=== PATIENT | male | born 1985 | race Caucasian/White ===

== ENCOUNTER 2018-11-09 06:14 | Inpatient (IN) ==
[2018-11-09] MEDS ORDERED: Famotidine 20 MG/2 ML VIAL IVP ONE (06:23)
[2018-11-09] MEDS ORDERED: methylPREDNISolone 125 MG/2 ML VIAL IVP ONE (06:23)
[2018-11-09] MEDS ORDERED: 0.9 % Sodium Chloride 1,000 ML IVC ONE (06:23)
[2018-11-09] MEDS ORDERED: Ondansetron 4 MG/2 ML VIAL IVP ONE (06:48)
[2018-11-09 06:51] LABS: Basophils % 0.2 %; Eosinophils # 0.2 K/mcL (0.0-0.6); Eosinophils % 0.8 %; Hematocrit 46.4 % (37.5-50.1); Immature Granulocytes % 0.4 % (0-4); Lymphocytes # 2.8 K/mcL (0.6-4.6); Mean Corpuscular HGB Conc 32.5 g/dL (31.6-35.5); Mean Corpuscular Hemoglobin 27.6 pg (28.0-33.3); Mean Corpuscular Volume 84.7 fL (83.0-100.0); Mean Platelet Volume 10.2 fL (9.4-12.4); Monocytes % 9.9 %; Platelet Count 375 K/mcL (140-400); Red Blood Count 5.48 M/mcL (4.19-5.50); Red Cell Distribution Width 12.7 % (11.5-14.5); Segmented Neutrophils % 74.7 %; White Blood Count 20.3 K/mcL (4.3-11.1)
[2018-11-09] MEDS ORDERED: EPINEPHrine 1 MG/ML VIAL IM ONE (07:03)
[2018-11-09] MEDS ORDERED: Isovue-370 500 ML BOTTLE IVP ONE (07:05)
[2018-11-09 07:21] LABS: Hemoglobin 15.1 g/dL (12.9-16.9); Neutrophils # 15.2 K/mcL (1.6-8.9)
[2018-11-09 07:34] LABS: BUN/Creatinine Ratio 23 (6-26); Blood Urea Nitrogen 26 mg/dL (6-20); Calcium 9.3 mg/dL (8.6-10.3); Carbon Dioxide 24 mEq/L (23-29); Chloride 96 mEq/L (98-107); Creatine Kinase 105 Units/L (30-223); Glucose 139 mg/dL (70-105); Osmolality,Calculated 277 (280-300); Potassium 4.3 mEq/L (3.5-5.1); Sodium 130 mEq/L (136-145); eGFR For African Americans > 60 (> 60); eGFR For Non-African Americans > 60 (> 60)
[2018-11-09] MEDS ORDERED: *HR* HYDROmorphone (PF) 1 MG/ML SYRINGE IVP ONE ×2 (08:00→11:43)
[2018-11-09] MEDS ORDERED: MetroNIDAZOLE 500 MG/100 ML 500 MG/100 ML BAG IVPB ONE (09:45)
[2018-11-09] MEDS ORDERED: levoFLOXacin 500 MG/100 ML 500 MG/100 ML BAG IVPB ONE (09:45)
[2018-11-09] MEDS ORDERED: Naloxone 0.4 MG/ML INJ IVP PRN (09:57)
[2018-11-09] MEDS: *HR* HYDROcodone/Acet 5/325 mg TABLET PO PRN ×2 (13:16→20:57)
[2018-11-09 13:19] LABS: C-Reactive Protein 292 mg/L (Less than 10)
[2018-11-09] MEDS: Ringers Solution, Lactated 1,000 ML IVC SCH (16:06)
[2018-11-09] MEDS: *HR* OxyCODONE Immed Rel 5 MG TABLET PO PRN (17:40)
[2018-11-09] MEDS: Famotidine 20 MG TABLET PO SCH (20:57)
[2018-11-10] MEDS: Ringers Solution, Lactated 1,000 ML IVC SCH ×2 (02:24→12:23)
[2018-11-10] MEDS: *HR* OxyCODONE Immed Rel 5 MG TABLET PO PRN ×3 (02:48→23:22)
[2018-11-10 04:14] LABS: Basophils % 0.1 %; Hematocrit 33.8 % (37.5-50.1); Immature Granulocytes % 0.3 % (0-4); Lymphocytes # 1.1 K/mcL (0.6-4.6); Lymphocytes % 7.7 %; Mean Corpuscular HGB Conc 32.8 g/dL (31.6-35.5); Mean Corpuscular Hemoglobin 28.1 pg (28.0-33.3); Mean Corpuscular Volume 85.6 fL (83.0-100.0); Mean Platelet Volume 9.9 fL (9.4-12.4); Monocytes # 1.8 K/mcL (0.0-1.3); Monocytes % 12.7 %; Neutrophils # 10.9 K/mcL (1.6-8.9); Platelet Count 275 K/mcL (140-400); Red Blood Count 3.95 M/mcL (4.19-5.50); Red Cell Distribution Width 12.4 % (11.5-14.5); Segmented Neutrophils % 79.2 %; White Blood Count 13.8 K/mcL (4.3-11.1)
[2018-11-10 04:31] LABS: BUN/Creatinine Ratio 27 (6-26); Blood Urea Nitrogen 23 mg/dL (6-20); Calcium 8.6 mg/dL (8.6-10.3); Carbon Dioxide 26 mEq/L (23-29); Chloride 100 mEq/L (98-107); Glucose 152 mg/dL (70-105); Osmolality,Calculated 283 (280-300); Potassium 4.2 mEq/L (3.5-5.1); Sodium 133 mEq/L (136-145); eGFR For African Americans > 60 (> 60); eGFR For Non-African Americans > 60 (> 60)
[2018-11-10 04:37] LABS: Hemoglobin 11.1 g/dL (12.9-16.9)
[2018-11-10] MEDS ORDERED: Acetaminophen 325 MG TABLET PO ONE (06:47)
[2018-11-10] MEDS: Famotidine 20 MG TABLET PO SCH ×2 (09:26→19:37)
[2018-11-10] MEDS: *HR* HYDROcodone/Acet 5/325 mg TABLET PO PRN (12:22)
[2018-11-10] MEDS: Aztreonam 1,000 MG in 0.9 % Sodium Chloride Mini Bag 100 ML IVPB SCH ×2 (14:23→19:37)
[2018-11-10] MEDS: Simethicone 80 MG TAB.CHEW PO PRN (19:37)
[2018-11-11] MEDS: Ringers Solution, Lactated 1,000 ML IVC SCH ×3 (00:52→11:29)
[2018-11-11] MEDS: Aztreonam 1,000 MG in 0.9 % Sodium Chloride Mini Bag 100 ML IVPB SCH ×2 (03:36→11:27)
[2018-11-11] MEDS: *HR* HYDROcodone/Acet 5/325 mg TABLET PO PRN ×4 (03:41→23:18)
[2018-11-11 06:38] LABS: Basophils % 0.1 %; Eosinophils # 0.6 K/mcL (0.0-0.6); Hematocrit 32.9 % (37.5-50.1); Hemoglobin 10.8 g/dL (12.9-16.9); Immature Granulocytes % 1.8 % (0-4); Immature Platelets 1.3 % (1.1-6.1); Lymphocytes % 10.8 %; Mean Corpuscular HGB Conc 32.8 g/dL (31.6-35.5); Mean Corpuscular Volume 85.2 fL (83.0-100.0); Mean Platelet Volume 9.3 fL (9.4-12.4); Monocytes # 1.7 K/mcL (0.0-1.3); Monocytes % 9.3 %; Neutrophils # 13.9 K/mcL (1.6-8.9); Platelet Count 335 K/mcL (140-400); Red Blood Count 3.86 M/mcL (4.19-5.50); White Blood Count 18.5 K/mcL (4.3-11.1)
[2018-11-11 07:34] LABS: Alanine Aminotransferase 34 Units/L (7-52); Albumin 2.9 g/dL (3.5-5.7); Albumin/Globulin Ratio 0.9 (1.1-2.2); Alkaline Phosphatase 111 Units/L (34-104); Aspartate Amino Transferase 27 Units/L (13-39); BUN/Creatinine Ratio 24 (6-26); Bilirubin,Direct 0.1 mg/dL (0.0-0.2); Bilirubin,Indirect 0.3 mg/dL (0.0-1.2); Bilirubin,Total 0.4 mg/dL (0.3-1.0); Blood Urea Nitrogen 19 mg/dL (6-20); Calcium 8.7 mg/dL (8.6-10.3); Carbon Dioxide 25 mEq/L (23-29); Chloride 103 mEq/L (98-107); Globulin 3.4 g/dL (2.4-3.5); Glucose 109 mg/dL (70-105); Osmolality,Calculated 281 (280-300); Potassium 4.2 mEq/L (3.5-5.1); Sodium 134 mEq/L (136-145); Total Protein 6.3 g/dL (6.4-8.9); eGFR For African Americans > 60 (> 60); eGFR For Non-African Americans > 60 (> 60)
[2018-11-11] MEDS: Famotidine 20 MG TABLET PO SCH ×2 (09:55→19:27)
[2018-11-11] MEDS: *HR* OxyCODONE Immed Rel 5 MG TABLET PO PRN ×2 (11:39→19:26)
[2018-11-11] MEDS: levoFLOXacin 750 MG/150 ML 750 MG/150 ML BAG IVPB SCH (15:36)
[2018-11-11 17:08] LABS: Rheumatoid Factor 19 IU/mL (Less than 14)
[2018-11-11 17:15] LABS: Procalcitonin 0.71 ng/mL (0.00-0.15)
[2018-11-11 17:29] LABS: Amphetamine Screen,Urine Positive ng/mL (Cutoff=1000); Barbiturate Screen,Urine Negative ng/mL (Cutoff=200); Benzodiazepines Screen,Urine Negative ng/mL (Cutoff=200); Cannabinoid Screen,Urine Positive ng/mL (Cutoff = 50); Cocaine Screen,Urine Negative ng/mL (Cutoff= 300); Opiate Screen,Urine Positive ng/mL (Cutoff=300); Phencyclidine Screen,Urine Negative ng/mL (Cutoff=25)
[2018-11-11] MEDS: Simethicone 80 MG TAB.CHEW PO PRN (18:38)
[2018-11-12] MEDS: *HR* OxyCODONE Immed Rel 5 MG TABLET PO PRN ×3 (02:58→20:12)
[2018-11-12] MEDS: Ringers Solution, Lactated 1,000 ML IVC SCH ×3 (05:51→19:01)
[2018-11-12] MEDS: *HR* HYDROcodone/Acet 5/325 mg TABLET PO PRN ×2 (07:39→18:19)
[2018-11-12] MEDS: Famotidine 20 MG TABLET PO SCH ×2 (07:39→20:12)
[2018-11-12] MEDS: levoFLOXacin 750 MG/150 ML 750 MG/150 ML BAG IVPB SCH (07:40)
[2018-11-12 08:09] LABS: Basophils % 0.2 %; Eosinophils # 0.6 K/mcL (0.0-0.6); Eosinophils % 4.1 %; Hematocrit 32.5 % (37.5-50.1); Hemoglobin 10.5 g/dL (12.9-16.9); Immature Granulocytes % 2.1 % (0-4); Lymphocytes # 1.5 K/mcL (0.6-4.6); Lymphocytes % 10.8 %; Mean Corpuscular HGB Conc 32.3 g/dL (31.6-35.5); Mean Corpuscular Hemoglobin 27.9 pg (28.0-33.3); Mean Corpuscular Volume 86.4 fL (83.0-100.0); Mean Platelet Volume 9.1 fL (9.4-12.4); Monocytes # 1.3 K/mcL (0.0-1.3); Monocytes % 9.9 %; Neutrophils # 9.9 K/mcL (1.6-8.9); Platelet Count 304 K/mcL (140-400); Red Blood Count 3.76 M/mcL (4.19-5.50); Red Cell Distribution Width 13.2 % (11.5-14.5); Segmented Neutrophils % 72.9 %; White Blood Count 13.6 K/mcL (4.3-11.1)
[2018-11-12 08:25] LABS: BUN/Creatinine Ratio 20 (6-26); Blood Urea Nitrogen 17 mg/dL (6-20); Calcium 8.5 mg/dL (8.6-10.3); Carbon Dioxide 28 mEq/L (23-29); Chloride 104 mEq/L (98-107); Glucose 98 mg/dL (70-105); Osmolality,Calculated 284 (280-300); Potassium 4.5 mEq/L (3.5-5.1); Sodium 136 mEq/L (136-145); eGFR For African Americans > 60 (> 60); eGFR For Non-African Americans > 60 (> 60)
[2018-11-12] MEDS: *HR* Heparin 5,000 UNIT/ML VIAL SQ SCH (17:05)
[2018-11-12] MEDS: Simethicone 80 MG TAB.CHEW PO PRN (17:22)
[2018-11-13] MEDS: *HR* HYDROcodone/Acet 5/325 mg TABLET PO PRN ×3 (00:15→11:54)
[2018-11-13 02:29] LABS: Basophils # 0.1 K/mcL (0.0-0.2); Basophils % 0.5 %; Eosinophils # 0.6 K/mcL (0.0-0.6); Eosinophils % 3.2 %; Hematocrit 32.6 % (37.5-50.1); Hemoglobin 10.5 g/dL (12.9-16.9); Immature Granulocytes % 4.3 % (0-4); Lymphocytes # 2.2 K/mcL (0.6-4.6); Lymphocytes % 12.1 %; Mean Corpuscular HGB Conc 32.2 g/dL (31.6-35.5); Mean Corpuscular Hemoglobin 27.3 pg (28.0-33.3); Mean Corpuscular Volume 84.9 fL (83.0-100.0); Monocytes % 11.2 %; Neutrophils # 12.3 K/mcL (1.6-8.9); Platelet Count 399 K/mcL (140-400); Red Blood Count 3.84 M/mcL (4.19-5.50); Red Cell Distribution Width 13.2 % (11.5-14.5); Segmented Neutrophils % 68.7 %; White Blood Count 17.9 K/mcL (4.3-11.1)
[2018-11-13 02:43] LABS: BUN/Creatinine Ratio 15 (6-26); Blood Urea Nitrogen 12 mg/dL (6-20); Calcium 8.3 mg/dL (8.6-10.3); Carbon Dioxide 24 mEq/L (23-29); Chloride 100 mEq/L (98-107); Glucose 111 mg/dL (70-105); Osmolality,Calculated 278 (280-300); Potassium 4.2 mEq/L (3.5-5.1); Sodium 134 mEq/L (136-145); eGFR For African Americans > 60 (> 60); eGFR For Non-African Americans > 60 (> 60)
[2018-11-13] MEDS ORDERED: Ibuprofen 600 MG TABLET PO ONE (03:20)
[2018-11-13] MEDS: *HR* OxyCODONE Immed Rel 5 MG TABLET PO PRN ×3 (04:22→21:21)
[2018-11-13] MEDS: *HR* Heparin 5,000 UNIT/ML VIAL SQ SCH ×2 (04:24→17:32)
[2018-11-13] MEDS: Ringers Solution, Lactated 1,000 ML IVC SCH ×2 (06:21→13:39)
[2018-11-13 07:00] LABS: Hepatitis B Surface Antibody 165.13 mIU/mL
[2018-11-13 07:06] LABS: Hepatitis B Surface Antigen Nonreactive (Nonreactive)
[2018-11-13] MEDS: Famotidine 20 MG TABLET PO SCH ×2 (09:17→20:05)
[2018-11-13] MEDS: levoFLOXacin 750 MG/150 ML 750 MG/150 ML BAG IVPB SCH (09:18)
[2018-11-13] MEDS ORDERED: 0.9 % Sodium Chloride 1,000 ML IVC SCH (11:00)
[2018-11-13] MEDS ORDERED: *HR* OxyCODONE Immed Rel 5 MG TABLET PO SCH (12:00)
[2018-11-13] MEDS ORDERED: Isovue-370 500 ML BOTTLE IVP ONE (13:26)
[2018-11-13 14:18] LABS: C-Reactive Protein 224 mg/L (Less than 10)
[2018-11-13 14:30] LABS: Creatine Kinase 47 Units/L (30-223); Lactate Dehydrogenase 202 Units/L (140-271)
[2018-11-13] MEDS ORDERED: Ketorolac 15 MG/ML VIAL IVP PRN (17:05)
[2018-11-13] MEDS ORDERED: *HR* HYDROmorphone (PF) 1 MG/ML SYRINGE IVP ONE (17:05)
[2018-11-13] MEDS: MetroNIDAZOLE 500 MG/100 ML 500 MG/100 ML BAG IVPB SCH (17:33)
[2018-11-14] MEDS: MetroNIDAZOLE 500 MG/100 ML 500 MG/100 ML BAG IVPB SCH ×4 (00:36→23:36)
[2018-11-14] MEDS: *HR* OxyCODONE Immed Rel 5 MG TABLET PO PRN ×3 (03:25→19:58)
[2018-11-14 04:08] LABS: Basophils # 0.1 K/mcL (0.0-0.2); Basophils % 0.6 %; Eosinophils # 0.5 K/mcL (0.0-0.6); Eosinophils % 3.2 %; Hematocrit 33.2 % (37.5-50.1); Hemoglobin 10.5 g/dL (12.9-16.9); Lymphocytes # 2.2 K/mcL (0.6-4.6); Lymphocytes % 13.1 %; Mean Corpuscular HGB Conc 31.6 g/dL (31.6-35.5); Mean Corpuscular Hemoglobin 27.9 pg (28.0-33.3); Mean Corpuscular Volume 88.1 fL (83.0-100.0); Mean Platelet Volume 8.6 fL (9.4-12.4); Platelet Count 428 K/mcL (140-400); Red Blood Count 3.77 M/mcL (4.19-5.50); Red Cell Distribution Width 13.2 % (11.5-14.5); Segmented Neutrophils % 63.1 %
[2018-11-14 04:16] LABS: BUN/Creatinine Ratio 16 (6-26); Blood Urea Nitrogen 12 mg/dL (6-20); Calcium 8.4 mg/dL (8.6-10.3); Carbon Dioxide 29 mEq/L (23-29); Chloride 104 mEq/L (98-107); Glucose 116 mg/dL (70-105); Osmolality,Calculated 289 (280-300); Potassium 4.7 mEq/L (3.5-5.1); Sodium 139 mEq/L (136-145); eGFR For African Americans > 60 (> 60); eGFR For Non-African Americans > 60 (> 60)
[2018-11-14 04:31] LABS: Neutrophils # 10.7 K/mcL (1.6-8.9)
[2018-11-14 04:52] LABS: INR 1.2
[2018-11-14 04:54] LABS: Activated Partial Thrombo Time 29.7 Seconds (26.0-36.0)
[2018-11-14] MEDS: *HR* Heparin 5,000 UNIT/ML VIAL SQ SCH ×2 (06:10→16:04)
[2018-11-14] MEDS: *HR* HYDROcodone/Acet 5/325 mg TABLET PO PRN ×3 (06:11→23:36)
[2018-11-14] MEDS: levoFLOXacin 750 MG/150 ML 750 MG/150 ML BAG IVPB SCH (08:46)
[2018-11-14] MEDS: Famotidine 20 MG TABLET PO SCH ×2 (09:01→19:58)
[2018-11-14 10:28] LABS: Hepatitis B Core Ab Total NEGATIVE (Negative)
[2018-11-14] MEDS ORDERED: 0.9 % Sodium Chloride 500 ML ONE (10:32)
[2018-11-14 10:34] LABS: ANA IgG by ELISA NONE DETECTED (None Detected)
[2018-11-14] MEDS ORDERED: *HR* FentaNYL (PF) 100 MCG/2 ML VIAL IVP ONE (10:36)
[2018-11-14] MEDS ORDERED: *HR* Midazolam HCl 2 MG/2 ML VIAL IVP ONE (10:36)
[2018-11-14] MEDS ORDERED: *HR* Midazolam HCl 2 MG/2 ML VIAL ONE (10:43)
[2018-11-14] MEDS ORDERED: *HR* FentaNYL (PF) 100 MCG/2 ML VIAL ONE (10:44)
[2018-11-15] MEDS: *HR* OxyCODONE Immed Rel 5 MG TABLET PO PRN ×3 (04:26→22:24)
[2018-11-15] MEDS: *HR* Heparin 5,000 UNIT/ML VIAL SQ SCH ×2 (05:30→18:24)
[2018-11-15] MEDS: MetroNIDAZOLE 500 MG/100 ML 500 MG/100 ML BAG IVPB SCH ×2 (09:02→18:23)
[2018-11-15] MEDS: levoFLOXacin 750 MG/150 ML 750 MG/150 ML BAG IVPB SCH (09:03)
[2018-11-15] MEDS: Famotidine 20 MG TABLET PO SCH ×2 (09:04→20:23)
[2018-11-15] MEDS: *HR* HYDROcodone/Acet 5/325 mg TABLET PO PRN ×2 (09:04→19:17)
[2018-11-15 10:43] LABS: Basophils # 0.1 K/mcL (0.0-0.2); Basophils % 0.8 %; Eosinophils # 0.6 K/mcL (0.0-0.6); Eosinophils % 4.4 %; Hematocrit 33.7 % (37.5-50.1); Hemoglobin 10.7 g/dL (12.9-16.9); Immature Granulocytes % 8.7 % (0-4); Immature Platelets 0.5 % (1.1-6.1); Lymphocytes % 13.8 %; Mean Corpuscular HGB Conc 31.8 g/dL (31.6-35.5); Mean Corpuscular Hemoglobin 27.6 pg (28.0-33.3); Mean Corpuscular Volume 86.9 fL (83.0-100.0); Mean Platelet Volume 8.3 fL (9.4-12.4); Monocytes # 1.4 K/mcL (0.0-1.3); Platelet Count 495 K/mcL (140-400); Red Blood Count 3.88 M/mcL (4.19-5.50); Red Cell Distribution Width 13.2 % (11.5-14.5); Segmented Neutrophils % 62.3 %; White Blood Count 14.4 K/mcL (4.3-11.1)
[2018-11-15 10:55] LABS: BUN/Creatinine Ratio 18 (6-26); Blood Urea Nitrogen 14 mg/dL (6-20); Carbon Dioxide 26 mEq/L (23-29); Chloride 104 mEq/L (98-107); Glucose 91 mg/dL (70-105); Osmolality,Calculated 280 (280-300); Potassium 4.2 mEq/L (3.5-5.1); Sodium 135 mEq/L (136-145); eGFR For African Americans > 60 (> 60); eGFR For Non-African Americans > 60 (> 60)
[2018-11-15 11:25] LABS: Toxic Granulation Present (Not Present)
[2018-11-15 11:26] LABS: Platelet Estimate Increased (Normal)
[2018-11-15] MEDS: Nicotine 21 MG PATCH.TD24 TD SCH (18:23)
[2018-11-16] MEDS: MetroNIDAZOLE 500 MG/100 ML 500 MG/100 ML BAG IVPB SCH ×3 (00:18→15:53)
[2018-11-16] MEDS: *HR* OxyCODONE Immed Rel 5 MG TABLET PO PRN ×2 (05:06→20:15)
[2018-11-16 05:09] LABS: Eosinophils # 0.6 K/mcL (0.0-0.6); Hematocrit 36.5 % (37.5-50.1); Hemoglobin 11.6 g/dL (12.9-16.9); Mean Corpuscular HGB Conc 31.8 g/dL (31.6-35.5); Mean Corpuscular Hemoglobin 27.4 pg (28.0-33.3); Mean Corpuscular Volume 86.1 fL (83.0-100.0); Mean Platelet Volume 8.3 fL (9.4-12.4); Platelet Count 499 K/mcL (140-400); Red Blood Count 4.24 M/mcL (4.19-5.50); Red Cell Distribution Width 13.2 % (11.5-14.5); White Blood Count 15.7 K/mcL (4.3-11.1)
[2018-11-16 05:26] LABS: BUN/Creatinine Ratio 16 (6-26); Blood Urea Nitrogen 14 mg/dL (6-20); Calcium 8.6 mg/dL (8.6-10.3); Carbon Dioxide 28 mEq/L (23-29); Chloride 102 mEq/L (98-107); Glucose 103 mg/dL (70-105); Osmolality,Calculated 289 (280-300); Phosphorous 5.5 mg/dL (2.7-4.5); Potassium 4.3 mEq/L (3.5-5.1); Sodium 139 mEq/L (136-145); eGFR For African Americans > 60 (> 60); eGFR For Non-African Americans > 60 (> 60)
[2018-11-16 05:52] LABS: Lymphocytes # 2.2 K/mcL (0.6-4.6); Monocytes # 1.3 K/mcL (0.0-1.3); Neutrophils # 11.6 K/mcL (1.6-8.9); Platelet Estimate Increased (Normal)
[2018-11-16] MEDS: *HR* Heparin 5,000 UNIT/ML VIAL SQ SCH ×2 (06:12→18:22)
[2018-11-16] MEDS: Famotidine 20 MG TABLET PO SCH ×2 (08:27→20:15)
[2018-11-16] MEDS: *HR* HYDROcodone/Acet 5/325 mg TABLET PO PRN ×3 (08:27→22:33)
[2018-11-16] MEDS: levoFLOXacin 750 MG/150 ML 750 MG/150 ML BAG IVPB SCH (08:28)
[2018-11-16] MEDS: Nicotine 21 MG PATCH.TD24 TD SCH (08:28)
[2018-11-16] MEDS ORDERED: Ondansetron 4 MG/2 ML VIAL IVP PRN (09:04)
[2018-11-17] MEDS: *HR* OxyCODONE Immed Rel 5 MG TABLET PO PRN ×5 (00:36→20:23)
[2018-11-17] MEDS: MetroNIDAZOLE 500 MG/100 ML 500 MG/100 ML BAG IVPB SCH ×3 (01:40→15:45)
[2018-11-17] MEDS ORDERED: Acetaminophen IV 1,000 MG/100 ML INFUS..BTL IVPB ONE (01:44)
[2018-11-17] MEDS: *HR* HYDROcodone/Acet 5/325 mg TABLET PO PRN ×2 (03:47→13:03)
[2018-11-17] MEDS ORDERED: Haloperidol Lactate 5 MG/ML VIAL IVP ONE ×2 (04:01→22:21)
[2018-11-17] MEDS ORDERED: *HR* Promethazine 25 MG/ML VIAL IVP ONE ×2 (04:02→22:22)
[2018-11-17] MEDS ORDERED: *HR* LORazepam 2 MG/ML VIAL IVP ONE (04:52)
[2018-11-17] MEDS ORDERED: *HR* LORazepam 2 MG/ML VIAL ONE (04:54)
[2018-11-17] MEDS: *HR* Heparin 5,000 UNIT/ML VIAL SQ SCH ×2 (05:26→17:27)
[2018-11-17] MEDS ORDERED: *HR* LORazepam 2 MG/ML VIAL IVP STA (07:12)
[2018-11-17] MEDS ORDERED: *HR* LORazepam 2 MG/ML VIAL IVP PRN (07:30)
[2018-11-17] MEDS: Famotidine 20 MG TABLET PO SCH ×2 (09:04→20:24)
[2018-11-17] MEDS: Nicotine 21 MG PATCH.TD24 TD SCH (09:05)
[2018-11-17] MEDS: levoFLOXacin 750 MG/150 ML 750 MG/150 ML BAG IVPB SCH (09:06)
[2018-11-17] MEDS ORDERED: Aminoglycoside Consult 1 EACH MC ONE (09:38)
[2018-11-17 11:33] LABS: Hematocrit 36.2 % (37.5-50.1); Hemoglobin 11.9 g/dL (12.9-16.9); Mean Corpuscular HGB Conc 32.9 g/dL (31.6-35.5); Mean Corpuscular Hemoglobin 27.9 pg (28.0-33.3); Mean Platelet Volume 8.2 fL (9.4-12.4); Platelet Count 502 K/mcL (140-400); Red Blood Count 4.26 M/mcL (4.19-5.50); Red Cell Distribution Width 13.1 % (11.5-14.5); White Blood Count 13.8 K/mcL (4.3-11.1)
[2018-11-17 11:54] LABS: Lymphocytes # 1.9 K/mcL (0.6-4.6); Monocytes # 0.8 K/mcL (0.0-1.3)
[2018-11-17 11:56] LABS: Hypochromasia Present (Not Present); Platelet Estimate Increased (Normal); Smudge Cells Present (Not Present)
[2018-11-17 12:00] LABS: BUN/Creatinine Ratio 18 (6-26); Blood Urea Nitrogen 15 mg/dL (6-20); Calcium 8.7 mg/dL (8.6-10.3); Carbon Dioxide 25 mEq/L (23-29); Chloride 104 mEq/L (98-107); Glucose 121 mg/dL (70-105); Magnesium 1.8 mg/dL (1.6-2.6); Osmolality,Calculated 288 (280-300); Phosphorous 3.8 mg/dL (2.7-4.5); Potassium 4.1 mEq/L (3.5-5.1); Sodium 138 mEq/L (136-145); eGFR For African Americans > 60 (> 60); eGFR For Non-African Americans > 60 (> 60)
[2018-11-17] MEDS: *HR* LORazepam 2 MG/ML VIAL IVP PRN ×2 (12:57→20:26)
[2018-11-18] MEDS: *HR* LORazepam 2 MG/ML VIAL IVP PRN ×2 (00:01→02:21)
[2018-11-18] MEDS: MetroNIDAZOLE 500 MG/100 ML 500 MG/100 ML BAG IVPB SCH (00:01)
[2018-11-18 01:45] LABS: Hematocrit 35.1 % (37.5-50.1); Hemoglobin 11.3 g/dL (12.9-16.9); Mean Corpuscular HGB Conc 32.2 g/dL (31.6-35.5); Mean Corpuscular Hemoglobin 27.5 pg (28.0-33.3); Mean Corpuscular Volume 85.4 fL (83.0-100.0); Mean Platelet Volume 8.2 fL (9.4-12.4); Platelet Count 470 K/mcL (140-400); Red Blood Count 4.11 M/mcL (4.19-5.50); White Blood Count 16.1 K/mcL (4.3-11.1)
[2018-11-18 01:58] LABS: BUN/Creatinine Ratio 21 (6-26); Blood Urea Nitrogen 17 mg/dL (6-20); Calcium 8.6 mg/dL (8.6-10.3); Carbon Dioxide 23 mEq/L (23-29); Chloride 104 mEq/L (98-107); Glucose 115 mg/dL (70-105); Magnesium 1.8 mg/dL (1.6-2.6); Osmolality,Calculated 282 (280-300); Potassium 3.9 mEq/L (3.5-5.1); Sodium 135 mEq/L (136-145); eGFR For African Americans > 60 (> 60); eGFR For Non-African Americans > 60 (> 60)
[2018-11-18] MEDS: *HR* OxyCODONE Immed Rel 5 MG TABLET PO PRN (02:21)
[2018-11-18 02:23] LABS: Lymphocytes # 3.2 K/mcL (0.6-4.6); Neutrophils # 11.9 K/mcL (1.6-8.9); Reactive Lymphocytes Present (Not Present); Toxic Granulation Present (Not Present)
[2018-11-18] MEDS: *HR* HYDROcodone/Acet 5/325 mg TABLET PO PRN (04:50)
[2018-11-18] MEDS: *HR* Heparin 5,000 UNIT/ML VIAL SQ SCH (04:53)
[2018-11-18 07:02] VITALS: BP 145/94
== END 2018-11-18 09:39 | disposition left against medical advice (07) | DRG 720 ==
LOC: EMEROOARM 06:14 → 3BNU 06:14 → 2NENU 11-13 14:41
PROVIDERS: ADMIT Internal Medicine; ATTEND Internal Medicine
PROC: IRDRAIN (2018-11-14 12:00)